=== PATIENT | female | born 1985 | race Caucasian/White ===

== ENCOUNTER 2021-02-01 00:36 | Emergency (ER) | payer MEDICAID ==
[~2021-02-01] VITALS: Ht 152.4 cm; Wt 56.8 kg
[2021-02-01 00:51] VITALS: BP 122/80; Ht 152.4 cm; Wt 56.8 kg
[2021-02-01] MEDS ORDERED: LITHIUM CARBON150 MG PO (00:52)
[2021-02-01 01:04] LABS: HCG URINE NEGATIVE (NEGATIVE)
[2021-02-01 01:07] LABS: BILIRUBIN NEGATIVE (NEGATIVE); KETONE NEGATIVE (NEGATIVE); NITRITE NEGATIVE (NEGATIVE); UROBILINOGEN 4 mg/dL (< 2)
[2021-02-01 01:14] LABS: SQUAMOUS EPITHELIAL 0-5 HPF (0-4)
[2021-02-01 01:15] LABS: BACTERIA MANY HPF (NONE SEEN); UDS - AMPHET POSITIVE QUAL (NEGATIVE); UDS - BARB NEGATIVE QUAL (NEGATIVE); UDS - BENZO NEGATIVE QUAL (NEGATIVE); UDS - COCAINE NEGATIVE QUAL (NEGATIVE); UDS - OPIATE NEGATIVE QUAL (NEGATIVE); UDS - PCP NEGATIVE QUAL (NEGATIVE); UDS - THC POSITIVE QUAL (NEGATIVE)
[2021-02-01] MEDS ORDERED: MACROBID100 MG PO (01:23)
== END 2021-02-01 04:25 ==
LOC: D.ER 00:36
PROVIDERS: Family Medicine
DX: R41.82 Altered mental status, unspecified (principal); N39.0 Urinary tract infection, site not specified; V89.2XXA Person injured in unspecified motor-vehicle accident, traffic, initial encounter; Y93.9 Activity, unspecified; Y92.9 Unspecified place or not applicable; S00.31XA Abrasion of nose, initial encounter; R45.1 Restlessness and agitation; F41.9 Anxiety disorder, unspecified